=== PATIENT | male | born 1995 | race African-American/Black ===

== ENCOUNTER 2020-09-15 09:37 | Emergency (ER) | payer MEDICAID ==
[~2020-09-15] VITALS: Ht 177.8 cm; Wt 68.0 kg
[2020-09-15] MEDS ORDERED: ACETAMINOPHEN 500MG TABLET PO ONE (10:30)
[2020-09-15 13:03] VITALS: BP 120/81
== END 2020-09-15 13:04 | disposition home or self-care (01) ==
LOC: ER 09:58
DX: J40 Bronchitis, not specified as acute or chronic (principal)
CPT/HCPCS: 71045; 99283